=== PATIENT | female | born 2000 | race African-American/Black ===

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

== ENCOUNTER 2020-12-16 14:02 | Inpatient (IN) ==
[2020-12-16] MEDS ORDERED: INSULIN REGULAR 100 UNIT/ML IV STA (20:12)
[2020-12-16] MEDS ORDERED: SODIUM CHLORIDE 0.9% 2,000 ML IV STA (20:12)
[2020-12-16] MEDS ORDERED: INSULIN REGULAR DRIP 100 ML IV PRN (20:12)
[2020-12-16] MEDS ORDERED: SODIUM CHLORIDE 0.9% 1,000 ML IV STA (20:12)
[2020-12-16 20:26] LABS: Basophils # 0.1 10*3/uL (0.0-0.2); Basophils % 0.2 % (0.0-0.8); Hematocrit 43.3 VOL% (35.7-47.0); Hemoglobin 11.9 GM/DL (12.0-16.0); Immature Granulocytes % 13.9 %; Immature Granulocytes Absolute 4.51 #; Lymphocytes % 18.5 % (21.3-54.2); Mean Corpuscular HGB Conc 27.5 GM/DL (32-36); Mean Corpuscular Volume 93.7 FL (87-102); Mean Platelet Volume 10.5 FL (9.6-12.0); Monocytes % 4.1 % (1.7-12.7); NRBC # 0.03 10*3/uL; Neutrophils % 63.3 % (38.7-73.9); Platelet Count 568 T/CUMM (130-400); Red Blood Count 4.62 MC/CUMM (3.8-5.5); Red Cell Distribution Width 16.2 % (9.3-17.3); White Blood Count 32.5 T/CUMM (4-12)
[2020-12-16 20:52] LABS: Alanine Aminotransferase 29 U/L (13-56); Albumin 3.6 G/DL (3.4-5.0); Alkaline Phosphatase 257 U/L (45-117); Aspartate Amino Transferase 33 U/L (0-37); Blood Urea Nitrogen 21 MG/DL (7-18); Calcium 10.1 MG/DL (8.5-10.1); Carbon Dioxide 5 MMOL/L (21-32); Estimated Glom Filtration Rate 40 ML/MIN; Lymphocytes 23 % (20-55); Metamyelocytes 2 %; Osmolality,Calculated 324.2 MOS/KG (273-304); Potassium 5.6 MMOL/L (3.5-5.1); Segmented Neutrophils 70 % (50-85); Sodium 134 MMOL/L (136-145); Total Cells Counted 100; Total Protein 9.7 G/DL (6.4-8.2)
[2020-12-16 20:53] LABS: Anisocytosis 3+; Hypochromasia 3+; Microcytosis 3+
[2020-12-16 20:54] LABS: Glucose 1065 MG/DL (74-106)
[2020-12-16 21:02] LABS: ABG HCO3 4.8 MMOL/L (20-26); ABG Oxygen Saturation 97.1 % (95-100)
[2020-12-16 21:05] LABS: ABG PCO2 10.2 MM HG (35-48); ABG PH 6.926 (7.35-7.45)
[2020-12-16 21:06] LABS: ABG TCO2 10.2 MMOL/L (23-27)
[2020-12-16] MEDS ORDERED: DEXTROSE 50% 25 GM/50 ML VIAL IV PRN ×2 (22:04)
[2020-12-16] MEDS ORDERED: ONDANSETRON 4 MG/2 ML VIAL IV PRN (22:04)
[2020-12-16] MEDS ORDERED: POTASSIUM CHLORIDE RIDER 10 MEQ/100 ML PREMIX IV PRN (22:04)
[2020-12-16] MEDS ORDERED: ACETAMINOPHEN 325 MG TABLET PO PRN (22:04)
[2020-12-16] MEDS ORDERED: SODIUM PHOSPHATE IV PRN (22:04)
[2020-12-16] MEDS ORDERED: SODIUM CHLORIDE 0.9% 1,000 ML IV ONE (22:04)
[2020-12-16] MEDS ORDERED: SODIUM CHLORIDE 0.9% IV PRN (22:04)
[2020-12-16] MEDS ORDERED: SODIUM BICARB INJ 100 MEQ in STERILE WATER INJ 400 ML IV PRN (22:04)
[2020-12-16] MEDS ORDERED: MAGNESIUM SULF RIDER 4 GM/100 ML PREMIX IV PRN (22:04)
[2020-12-16] MEDS ORDERED: MAGNESIUM SULF RIDER 2 GM/50 ML PREMIX IV PRN (22:04)
[2020-12-16] MEDS: INSULIN REGULAR DRIP 100 ML IV SCH (22:35)
[2020-12-16 23:29] LABS: Barbiturates Screen,Urine Negative (Negative); Benzodiazepines Screen,Urine Negative (Negative); Cannabinoid Screen,Urine Negative (Negative); Opiate Screen,Urine Negative (Negative); Phencyclidine Screen,Urine Negative (Negative)
[2020-12-16 23:31] LABS: Bacteria,Urine Occasional /HPF (Few); Bilirubin,Urine Negative (Negative); Blood, Urine Small mg/dL (Negative); Glucose,Urine (UA) >=500 mg/dL (Negative); Hyaline Casts,Urine 1 /LPF (0-3); Ketones,Urine 80 mg/dL (Negative); Mucus,Urine Occasional /LPF (Occasional); Nitrite,Urine Negative (Negative); Protein,Urine 30 MG/DL; RBC,Urine 4 /HPF (0-4); Squamous Epithelial Cell,Urine Occasional /HPF (0-10); Urine Appearance CLEAR (Clear); Urine Color Straw (Yellow); Urine Specific Gravity 1.018 (1.001-1.035); Urine Urobilinogen < 2.0 EU/DL (0.2-1.0)
[2020-12-16] MEDS: SODIUM CHLORIDE 0.9% 1,000 ML IV SCH (23:57)
[2020-12-17 00:31] LABS: Calcium 8.5 MG/DL (8.5-10.1); Osmolality,Calculated 324.3 MOS/KG (273-304); Potassium 4.9 MMOL/L (3.5-5.1)
[2020-12-17] MEDS: SODIUM CHLORIDE 0.9% 1,000 ML IV SCH (02:05)
[2020-12-17 03:04] LABS: Calcium 8.1 MG/DL (8.5-10.1); Osmolality,Calculated 316.7 MOS/KG (273-304); Potassium 4.5 MMOL/L (3.5-5.1)
[2020-12-17] MEDS ORDERED: SODIUM CHLORIDE 0.9% 1,000 ML IV SCH (03:30)
[2020-12-17] MEDS ORDERED: SODIUM CHLORIDE 0.45% 1,000 ML IV SCH ×3 (04:00→15:30)
[2020-12-17 05:32] LABS: Alanine Aminotransferase 28 U/L (13-56); Albumin 3.3 G/DL (3.4-5.0); Alkaline Phosphatase 193 U/L (45-117); Aspartate Amino Transferase 37 U/L (0-37); Bilirubin,Total < 0.39 MG/DL (0.20-1.00); Blood Urea Nitrogen 14 MG/DL (7-18); Calcium 8.8 MG/DL (8.5-10.1); Carbon Dioxide 13 MMOL/L (21-32); Estimated Glom Filtration Rate 62 ML/MIN; Glucose 274 MG/DL (74-106); Potassium 4.1 MMOL/L (3.5-5.1); Sodium 150 MMOL/L (136-145)
[2020-12-17 05:36] LABS: Basophils # 0.1 10*3/uL (0.0-0.2); Basophils % 0.2 % (0.0-0.8); Hematocrit 35.6 VOL% (35.7-47.0); Immature Granulocytes % 11.9 %; Immature Granulocytes Absolute 3.78 #; Lymphocytes # 8.4 10*3/uL (1.4-4.0); Lymphocytes % 26.4 % (21.3-54.2); Mean Corpuscular HGB Conc 29.8 GM/DL (32-36); Mean Corpuscular Volume 88.3 FL (87-102); Mean Platelet Volume 9.6 FL (9.6-12.0); Monocytes % 5.5 % (1.7-12.7); NRBC # 0.02 10*3/uL; Platelet Count 515 T/CUMM (130-400); Red Blood Count 4.03 MC/CUMM (3.8-5.5); Red Cell Distribution Width 15.6 % (9.3-17.3); White Blood Count 31.8 T/CUMM (4-12)
[2020-12-17 05:40] LABS: Hemoglobin 10.6 GM/DL (12.0-16.0)
[2020-12-17 06:46] LABS: Band Neutrophils 1 % (0-10); Lymphocytes 27 % (20-55); Metamyelocytes 1 %; Myelocytes 1 %; Segmented Neutrophils 61 % (50-85); Total Cells Counted 100
[2020-12-17 06:47] LABS: Hypochromasia 1+; Microcytosis 1+; Platelet Estimate Increased
[2020-12-17 07:00] LABS: Osmolality,Calculated 309.6 MOS/KG (273-304); Potassium 3.9 MMOL/L (3.5-5.1)
[2020-12-17] MEDS: PANTOPRAZOLE 40 MG TABLET PO SCH (09:30)
[2020-12-17] MEDS: ENOXAPARIN 40 MG/0.4 ML SYRINGE SUBCUT SCH (09:30)
[2020-12-17 10:58] LABS: Osmolality,Calculated 286.8 MOS/KG (273-304); Potassium 3.3 MMOL/L (3.5-5.1)
[2020-12-17] MEDS ORDERED: DEXT 5% NACL 0.45% KCL 20 MEQ 20 MEQ/1,000 ML BAG IV SCH (11:30)
[2020-12-17 11:36] LABS: Calcium 8.4 MG/DL (8.5-10.1); Osmolality,Calculated 292.4 MOS/KG (273-304); Potassium 3.4 MMOL/L (3.5-5.1)
[2020-12-17] MEDS: DEXTROSE 5% NACL 0.45% 1,000 ML IV SCH ×3 (12:04→23:31)
[2020-12-17 14:26] LABS: Calcium 7.9 MG/DL (8.5-10.1); Osmolality,Calculated 304.6 MOS/KG (273-304); Potassium 3.5 MMOL/L (3.5-5.1)
[2020-12-17] MEDS ORDERED: PNEUMOCOCCAL VACCINE (13 VALENT) 0.5 ML SYRINGE IM ONE (15:47)
[2020-12-17] MEDS: INSULIN REGULAR DRIP 100 ML IV SCH (22:09)
[2020-12-18 02:13] LABS: Calcium 8.3 MG/DL (8.5-10.1); Osmolality,Calculated 282.8 MOS/KG (273-304)
[2020-12-18] MEDS: DEXT 5% NACL 0.45% KCL 20 MEQ 20 MEQ/1,000 ML BAG IV SCH ×3 (02:26→20:17)
[2020-12-18 04:56] LABS: Basophils % 0.2 % (0.0-0.8); Eosinophils % 0.3 % (0.00-10.9); Hematocrit 28.7 VOL% (35.7-47.0); Hemoglobin 8.9 GM/DL (12.0-16.0); Lymphocytes % 32.7 % (21.3-54.2); Mean Corpuscular Volume 83.4 FL (87-102); Mean Platelet Volume 10.5 FL (9.6-12.0); Monocytes % 5.5 % (1.7-12.7); Neutrophils % 56.1 % (38.7-73.9); Red Blood Count 3.44 MC/CUMM (3.8-5.5); Red Cell Distribution Width 15.4 % (9.3-17.3)
[2020-12-18] MEDS: DEXTROSE 5% NACL 0.45% 1,000 ML IV SCH ×3 (05:15→20:18)
[2020-12-18 05:16] LABS: Osmolality,Calculated 283.1 MOS/KG (273-304); Potassium 3.4 MMOL/L (3.5-5.1)
[2020-12-18 05:30] LABS: Platelet Count 401 T/CUMM (130-400); White Blood Count 12.3 T/CUMM (4-12)
[2020-12-18 05:46] LABS: Eosinophils 1 % (0-10); Hypochromasia Slight; Lymphocytes 47 % (20-55); Platelet Estimate Normal; Segmented Neutrophils 49 % (50-85); Total Cells Counted 100
[2020-12-18] MEDS: PANTOPRAZOLE 40 MG TABLET PO SCH (08:23)
[2020-12-18] MEDS: ENOXAPARIN 40 MG/0.4 ML SYRINGE SUBCUT SCH (08:24)
[2020-12-18] MEDS: INSULIN GLARGINE 100 UNIT/ML SUBCUT SCH (09:11)
[2020-12-18] MEDS: INSULIN LISPRO 100 UNIT/ML SUBCUT SCH ×6 (10:27→22:27)
[2020-12-19] MEDS: DEXT 5% NACL 0.45% KCL 20 MEQ 20 MEQ/1,000 ML BAG IV SCH ×2 (02:35→12:34)
[2020-12-19] MEDS: INSULIN LISPRO 100 UNIT/ML SUBCUT SCH ×4 (02:35→12:58)
[2020-12-19] MEDS: DEXTROSE 5% NACL 0.45% 1,000 ML IV SCH ×2 (02:36→12:34)
[2020-12-19 06:18] LABS: Basophils % 0.3 % (0.0-0.8); Hematocrit 31.6 VOL% (35.7-47.0); Hemoglobin 9.9 GM/DL (12.0-16.0); Lymphocytes # 3.5 10*3/uL (1.4-4.0); Lymphocytes % 48.9 % (21.3-54.2); Mean Corpuscular HGB Conc 31.3 GM/DL (32-36); Mean Corpuscular Volume 83.2 FL (87-102); Mean Platelet Volume 9.1 FL (9.6-12.0); Monocytes % 8.6 % (1.7-12.7); Neutrophils % 39.9 % (38.7-73.9); Platelet Count 449 T/CUMM (130-400); Red Cell Distribution Width 15.4 % (9.3-17.3); White Blood Count 7.1 T/CUMM (4-12)
[2020-12-19 06:56] LABS: Osmolality,Calculated 287.8 MOS/KG (273-304); Potassium 3.7 MMOL/L (3.5-5.1)
[2020-12-19 08:11] LABS: Eosinophils 1 % (0-10); Hypochromasia 1+; Lymphocytes 50 % (20-55); Microcytosis 1+; Segmented Neutrophils 41 % (50-85); Total Cells Counted 100
[2020-12-19 08:12] LABS: Platelet Estimate Increased
[2020-12-19] MEDS: PANTOPRAZOLE 40 MG TABLET PO SCH (09:11)
[2020-12-19] MEDS: ENOXAPARIN 40 MG/0.4 ML SYRINGE SUBCUT SCH (09:13)
[2020-12-19] MEDS ORDERED: INSULIN LISPRO 100 UNIT/ML SUBCUT SCH (11:30)
[2020-12-19] MEDS: INSULIN GLARGINE 100 UNIT/ML SUBCUT SCH (12:08)
[2020-12-19 16:21] VITALS: BP 127/86
== END 2020-12-19 18:18 | disposition home or self-care (01) | DRG 638 ==
LOC: N.ED 14:02 → SUATTDRO 22:04 → N.EDINP 22:04 → N.ICU 12-17 14:51 → N.TELES 12-18 14:01
PROVIDERS: ADMIT Internal Medicine; ATTEND Internal Medicine